=== PATIENT | female | born 1995 | race Caucasian/White ===

== ENCOUNTER 2016-11-30 09:10 | Emergency (ER) | payer BC, OTHER ==
[2016-11-30 09:25] VITALS: BP 120/59
--- NOTE | 2016-11-30 09:33 | UC ---
Throat Pain/Nasal Josef HPI - HPI Summary HPI Summary: SORE THROAT X 1 DAY NO NASAL CONGESTION, NO COUGH, NO FEVER OR CHILLS - History of Current Complaint Chief Complaint: UCGeneralIllness Stated Complaint: SORE THROAT Time Seen by Provider: 11/30/16 09:28 Hx Obtained From: Patient Hx Last Menstrual Period: 11/04/16 Onset/Duration: Sudden Onset, Lasting Days - 1, Still Present Severity: Moderate Cough: None Associated Signs & Symptoms: Negative: FB Sensation, Drooling, Wheezing, Hoarseness, Sinus Discomfort, Nasal Discharge, Fever, Vomiting, Rash - Allergies/Home Medications Allergies/Adverse Reactions: Allergies Allergy/AdvReac Type Severity Reaction Status Date / Time No Known Allergies Allergy Verified 11/30/16 09:25 Home Medications: Home Medications NK [No Home Medications Reported] 11/30/16 [History Confirmed 11/30/16] PMH/Surg Hx/FS Hx/Imm Hx Previously Healthy: Yes - Surgical History Surgical History: None - Family History Known Family History: Negative: Diabetes - Social History Alcohol Use: Rare Substance Use Type: None Smoking Status (MU): Never Smoked Tobacco Review of Systems Constitutional: Negative Skin: Negative Eyes: Negative ENT: Sore Throat Respiratory: Negative Cardiovascular: Negative All Other Systems Reviewed And Are Negative: Yes Physical Exam Triage Information Reviewed: Yes Appearance: Well-Appearing, No Pain Distress, Well-Nourished Vital Signs: Initial Vital Signs Temp 98.2 F 11/30/16 09:20 Pulse 90 11/30/16 09:20 Resp 16 11/30/16 09:20 BP 120/59 11/30/16 09:20 Pulse Ox 100 11/30/16 09:20 Vital Signs Reviewed: Yes Eyes: Positive: Conjunctiva Clear ENT: Positive: Normal ENT inspection, Hearing grossly normal, Pharyngeal erythema, TMs normal. Negative: Nasal congestion, Nasal drainage Neck: Positive: Supple, Nontender, No Lymphadenopathy Respiratory: Positive: Chest non-tender, Lungs clear, Normal breath sounds Cardiovascular: Positive: RRR, No Murmur, Pulses Normal Abdominal Exam: Normal Skin Exam: Normal Throat Pain/Nasal Course/Dx - Differential Dx/Diagnosis Provider Diagnoses: Viral PHARYNGITIS Discharge - Discharge Plan Condition: Stable Disposition: HOME Patient Education Materials: Pharyngitis (ED) Referrals: Samson Salas MD [Primary Care Provider] - If Needed Additional Instructions: viral illness, no need for any antibiotics
== END 2016-11-30 09:55 | disposition home or self-care (01) ==
LOC: UCCORT 09:10
DX: J02.9 Acute pharyngitis, unspecified (principal)
CPT/HCPCS: 87651; 99201; G0463

== ENCOUNTER 2017-12-13 16:07 | Emergency (ER) | payer OTHER ==
[2017-12-13 16:54] VITALS: BP 124/67
--- NOTE | 2017-12-13 17:40 | UC ---
UC General HPI - HPI Summary HPI Summary: pt states about 2 weeks ago, she noticed a little difficulty with catching her breath even with just talking. she has some chest congestion followed by some sinus congestion. she also reports some rattling in her upper chest plus admits to occasional wheezing. she had a fever of 99 at the onset of this illness but none now. she denies cp, pain/swelling to her leg as well as BC use and prolonged travel hx. no hx asthma. admits to allergies. - History of Current Complaint Chief Complaint: UCRespiratory Stated Complaint: CHEST DISCOMFORT, SOB Time Seen by Provider: 12/13/17 17:32 Hx Obtained From: Patient Hx Last Menstrual Period: 12/08/17 Onset/Duration: Gradual Onset Pain Intensity: 4 Associated Signs & Symptoms: Negative: Chest Pain, Palpitations - Allergy/Home Medications Allergies/Adverse Reactions: Allergies Allergy/AdvReac Type Severity Reaction Status Date / Time No Known Allergies Allergy Verified 12/13/17 16:54 PMH/Surg Hx/FS Hx/Imm Hx - Additional Past Medical History Additional PMH: allergies - Surgical History Surgical History: None - Family History Known Family History: Negative: Diabetes - Social History Occupation: Employed Full-time Lives: With Family Alcohol Use: Rare Substance Use Type: None Smoking Status (MU): Never Smoked Tobacco - Immunization History Vaccination Up to Date: Yes Review of Systems Constitutional: Negative Skin: Negative Eyes: Negative ENT: Sinus Congestion Respiratory: Shortness Of Breath, Cough Cardiovascular: Negative Gastrointestinal: Negative Genitourinary: Negative Motor: Negative Neurovascular: Negative Musculoskeletal: Negative Neurological: Negative Psychological: Negative Is Patient Immunocompromised?: No All Other Systems Reviewed And Are Negative: Yes Physical Exam Triage Information Reviewed: Yes Appearance: Well-Appearing Vital Signs: Initial Vital Signs Temp 99.1 F 12/13/17 16:45 Pulse 94 12/13/17 16:45 Resp 16 12/13/17 16:45 BP 124/67 12/13/17 16:45 Pulse Ox 100 12/13/17 16:45 Vital Signs Reviewed: Yes Eyes: Positive: Conjunctiva Clear ENT: Positive: Pharynx normal, Nasal congestion, TMs normal. Negative: Sinus tenderness Neck: Positive: Supple, Nontender, No Lymphadenopathy Respiratory: Positive: Lungs clear, Normal breath sounds Cardiovascular: Positive: RRR, No Murmur, Pulses Normal Abdomen Description: Positive: Nontender, No Organomegaly, Soft Bowel Sounds: Positive: Present Musculoskeletal: Positive: ROM Intact, No Edema, Other: - no cords or calf tenderness Neurological: Positive: Alert Psychological: Positive: Age Appropriate Behavior Skin Exam: Normal Re-Evaluation - Re-Evaluation Second Eval Change: Unchanged - pt notes still feeling sob after the albuterol tx. states " i am not a hypochondriac" and " I'm frustrated because something is wrong". Course/Dx - Course Course Of Treatment: pt declined a cxr here at time of exam. she had no changes with albuterol neb tx. this is not typical of a PE but that is possible. the hx of infection type s/s's at onset also makes a cardiomyopathy a possibility and while less likely pericarditis possible as well. thus ER transfer needed. pt agrees to Er transfer but declined ems despite risk of mva, delay of care, worsening, disability and . she is A&Ox3 and able to make that decision thus I must respect her wish to drive self to ER. Report given to Dr Alcazar including hx, PE, tx and concern for PE, cardiomyopathy, percarditis in pt differential. EKG defer to ER as well because pt would still need transfer regardless of the result. - Differential Dx - Multi-Symptom Provider Diagnoses: Dyspnea Discharge - Sign-Out/Discharge Documenting (check all that apply): Discharge/Admit/Transfer - Discharge Plan Condition: Stable Disposition: TRANS HIGHER LVL OF CARE FAC Referrals: No Primary Care Phys,NOPCP [Primary Care Provider] - Additional Instructions: leave here and go directly to the [facility] ER as discussed - Billing Disposition and Condition Condition: STABLE Disposition: EMTALA
[2017-12-13] MEDS ORDERED: Albuterol 2.5 MG/3 ML NEB.SOL* (0.083%) INH ONE (17:50)
== END 2017-12-13 18:41 | disposition short-term general hospital (02) ==
LOC: UCCORT 16:07
DX: R06.00 Dyspnea, unspecified (principal)
CPT/HCPCS: 99212; G0463